=== PATIENT | male | born 1950 | race Caucasian/White ===

== ENCOUNTER → 2016-08-09 | Outpatient (CLI) | payer OTHER, MEDICARE ==
[~2016-08-09] MED LIST: MULT-506 PO; PRLSR20 PO
[2016-08-09 12:50] LABS: ALT/SGPT 21 U/L (12-78); AST/SGOT 15 U/L (15-37); BLOOD UREA NITROGEN 14 mg/dl (7-18); BUN/CREATININE RATIO 12.6 (10-20); CARBON DIOXIDE 29 mmol/L (21-32); CHLORIDE 104 mmol/L (98-107); CHOLESTEROL 168 mg/dl (0-200); GLUCOSE 104 mg/dl (70-99); SODIUM 141 mmol/L (136-145); TRIGLYCERIDES 84 mg/dl (0-150); VERY LOW DENSITY LIPOPROT CALC 17 mg/dl
[2016-08-09 12:53] LABS: ALB/GLOB RATIO 1.1 (0.9-2); ALKALINE PHOSPHATASE 79 U/L (45-117); CHOLESTEROL/HDL RATIO 3.1; HDL CHOLESTEROL 54 mg/dl; LDL CHOLESTEROL CALCULATED 97 mg/dl
== END | disposition home or self-care (01) ==
LOC: C.LABPVFM 08:14
PROVIDERS: ATTEND Nurse Practitioner
DX: Z51.81 Encounter for therapeutic drug level monitoring (principal); Z12.5 Encounter for screening for malignant neoplasm of prostate; E78.5 Hyperlipidemia, unspecified

== ENCOUNTER → 2016-09-25 | Day surgery (SDC) | payer OTHER, MEDICARE ==
[2016-09-10 13:05] VITALS: Ht 185.4 cm; Wt 93.6 kg
[~2016-09-25] VITALS: Ht 185.4 cm; Wt 93.6 kg
[~2016-09-25] MED LIST changes: +LIDOCAINE HCL 2% 2 ML VIAL (20MG/ML) ONE; +MIDAZOLAM HCL 1 MG/ML 2ML VIAL ONE; +ONDANSETRON INJ 2 MG/ML 2 ML VIAL ONE; +PROPOFOL IV EMULSION 10 MG/ML 20 ML VIAL IV ONE; +SODIUM CHLORIDE 0.9% 500ML 500 ML IV ONE
--- NOTE | 2016-09-25 10:13 | Endo History and Physical ---
History & Physical Date of Service: Sep 25, 2016. Chief Complaint: Hx tubular adenoma Referring Physician: Alexia Hall History of Present Illness 66 yo CM who presents for Colonoscopy secondary to history of colon polyps. Past Medical History Arthritis, Gastrointestinal Disorder, Reflux, Other Past Surgical History Hx Cardiac Surgery: No Hx Internal Defibrillator: No Hx Pacemaker: No Hx Abdominal Surgery: Yes (HERNIA REPAIR) Hx of Implantable Prosthesis: No Hx Post-Op Nausea and Vomiting: No Hx Cancer Surgery: No Hx Thoracic Surgery: No Hx Orthopedic: Yes (RT FOOT I&D FOR INFECTION) Hx Urinary Tract Surgery: No Family History None Social History Smoking Status: Former Smoker Hx Substance Use: No Hx Alcohol Use: Yes (1 DRINK/DAY) Allergies Coded Allergies: No Known Allergies (Unverified , 09/10/16) Current Medications Reported Home Medications Medications Dose Route/Sig Max Daily Dose Days Date Category Multivitamin (Multivitamins) Tab 1 Tab PO QAM 10/27/14 Reported Prilosec (Omeprazole) 20 Mg Capcr 20 Mg PO QAM 10/26/14 Reported Vital Signs Weight (Kilograms): 93.64 Height (Feet): 6 Height (Inches): 1 Date Time Temp Pulse Resp B/P Pulse Ox O2 Delivery O2 Flow Rate FiO2 09/25/16 09:28 36.4 60 20 146/53 96 Room Air Physical Exam General Appearance: WD/WN, no apparent distress Respiratory/Chest: Auscultation: breath sounds normal Cardiovascular: Heart Auscultation: RRR Abdomen: Bowel Sounds: normal Inspection & Palpation: soft, non-distended, no tenderness, guarding & rebound Assessment and Plan Assessment: 66 yo CM who presents for Colonoscopy secondary to history of colon polyps. Plan: Proceed with colonoscopy.
--- NOTE | 2016-09-25 11:13 | GI REPORT ---
Procedure Date: 09/25/2016 10:29 AM Procedure: Colonoscopy Indications: High risk colon cancer surveillance: Personal history of colonic polyps Medicines: Monitored Anesthesia Care Complications: No immediate complications. Estimated Blood Loss: Estimated blood loss: none. Procedure: Pre-Anesthesia Assessment: - Prior to the procedure, a History and Physical was performed, and patient medications and allergies were reviewed. The patient's tolerance of previous anesthesia was also reviewed. The risks and benefits of the procedure and the sedation options and risks were discussed with the patient. All questions were answered, and informed consent was obtained. Prior Anticoagulants: The patient has taken no previous anticoagulant or antiplatelet agents. ASA Grade Assessment: III - A patient with severe systemic disease. After reviewing the risks and benefits, the patient was deemed in satisfactory condition to undergo the procedure. After I obtained informed consent, the scope was passed under direct vision. Throughout the procedure, the patient's blood pressure, pulse, and oxygen saturations were monitored continuously. The Scope was introduced through the anus and advanced to the terminal ileum. The colonoscopy was performed without difficulty. The patient tolerated the procedure well. The quality of the bowel preparation was good. The terminal ileum, ileocecal valve, appendiceal orifice, and rectum were photographed. Findings: Two sessile polyps were found in the rectum. The polyps were 4 to 5 mm in size. These polyps were removed with a hot snare. Resection and retrieval were complete. Multiple small-mouthed diverticula were found in the sigmoid colon. Non-bleeding internal hemorrhoids were found during retroflexion. The hemorrhoids were small. Impression: - Two 4 to 5 mm polyps in the rectum, removed with a hot snare. Resected and retrieved. - Diverticulosis in the sigmoid colon. - Non-bleeding internal hemorrhoids. Recommendation: - Resume previous diet. - Continue present medications. - Repeat colonoscopy for surveillance based on pathology results. - Return to primary care physician as previously scheduled. Barney Lees DO 09/25/2016 11:13:07 AM This report has been signed electronically. Note Initiated On: 09/25/2016 10:29 AM I attest to the content of the Intraoperative Record and orders documented therein, exceptions below
--- NOTE | 2016-09-25 11:14 | Discharge Instructions ---
Endoscopy Patient Instructions Date / Procedure(s) Performed Sep 25, 2016. Colonoscopy Allergy Information Coded Allergies: No Known Allergies (Unverified , 09/10/16) Discharge Date / Findings Sep 25, 2016. Rectal polyps Diverticulosis Internal hemorrhoids Medication Instructions OK to resume all medications today as prescribed. Reported Home Medications Medications Dose Route/Sig Max Daily Dose Days Date Category Multivitamin (Multivitamins) Tab 1 Tab PO QAM 10/27/14 Reported Prilosec (Omeprazole) 20 Mg Capcr 20 Mg PO QAM 10/26/14 Reported Provider Instructions Activity Restrictions - No exercising or heavy lifting for 24 hours. - Do not drink alcohol the day of the procedure. - Do not drive a car or operate machinery until the day after the procedure. - Do not make any important decisions or sign important papers in 24 hours after the procedure. Following Day: - Return to full activity which may include returning to work/school. Diet Start your diet with liquids and light foods (jello, soup, juice, toast). Then eat your usual diet if not nauseated. Treatment For Common After Affects For mild abdominal pain, bloating, or excessive gas: - Rest - Eat lightly - Lie on right side Follow-Up Information Follow-up with Alexia Hall as scheduled Anesthesia Information What You Should Know You have had a procedure that required some medicine to reduce anxiety and discomfort. This treatment is called moderate sedation. After receiving the treatment, you may be sleepy, but you will be able to breathe on your own. The effects of the treatment may last for several hours. Follow these instructions along with Activity/Diet recommendations noted above: * Do NOT do anything where dizziness or clumsiness would be dangerous. * Rest quietly at home today, then you can be up and about tomorrow. * Have a responsible person stay with you the rest of today. * You may have had an I.V. today. If so, you may take the dressing off later today. Recommendations Call your doctor if: * Trouble breathing * Continuous vomiting for more than 24 hours * Temperature above 101 degrees * Severe abdominal pain or bloating * Pain not relieved by pain medicine ordered * There is increased drainage or redness from any incision * A large amount of rectal bleeding greater than 2-3 tablespoons. (If you had a polyp/s removed or have hemorrhoids, a small amount of blood - from the rectum is to be expected.) * You have any unanswered questions or concerns. IN THE EVENT OF A SERIOUS EMERGENCY, GO TO THE NEAREST EMERGENCY ROOM Your discharge instructions were prepared by provider Barney Lees. Patient Instructions Signature Page Josh Lorenzo Patient (or Guardian) Signature/Date: I have read and understand the instructions given to me by my caregivers. Caregiver/RN/Doctor Signature/Date: The above-named patient and/or guardian has received patient instructions on this date. + Original Patient Signature Page (only) stays with chart. Please make copy for patient.
[2016-09-25 11:35] VITALS: BP 129/60; PULSE 60; O2SAT 99
--- NOTE | 2016-09-25 14:31 | Anesthesiology Progress Note ---
Anesthesia Post Op Note Date & Time Sep 25, 2016 at 14:31 Vital Signs Pain Intensity: 0 Vital Signs Past 12 Hours Date Time Temp Pulse Resp B/P Pulse Ox O2 Delivery O2 Flow Rate FiO2 09/25/16 11:35 60 18 129/60 99 Room Air 09/25/16 11:20 60 18 125/60 96 Room Air 09/25/16 11:05 65 18 115/46 96 Room Air 09/25/16 09:28 36.4 60 20 146/53 96 Room Air Notes Mental Status: alert / awake / arousable, participated in evaluation Pt Amnestic to Procedure: Yes Nausea / Vomiting: adequately controlled Pain: adequately controlled Airway Patency, RR, SpO2: stable & adequate BP & HR: stable & adequate Hydration State: stable & adequate Anesthetic Complications: no major complications apparent
== END | disposition home or self-care (01) ==
LOC: C.GI 09:10
PROVIDERS: ATTEND Internal Medicine
DX: Z12.11 Encounter for screening for malignant neoplasm of colon (principal); K62.1 Rectal polyp; Z86.010 Personal history of colon polyps; K57.32 Diverticulitis of large intestine without perforation or abscess without bleeding; K64.8 Other hemorrhoids; K21.9 Gastro-esophageal reflux disease without esophagitis; M19.90 Unspecified osteoarthritis, unspecified site; Z87.891 Personal history of nicotine dependence; E78.5 Hyperlipidemia, unspecified; K22.70 Barrett's esophagus without dysplasia

== ENCOUNTER → 2017-08-15 | Outpatient (CLI) | payer OTHER, MEDICARE ==
[~2017-08-15] MED LIST changes: -LIDOCAINE HCL 2% 2 ML VIAL (20MG/ML) ONE; -MIDAZOLAM HCL 1 MG/ML 2ML VIAL ONE; -ONDANSETRON INJ 2 MG/ML 2 ML VIAL ONE; -PROPOFOL IV EMULSION 10 MG/ML 20 ML VIAL IV ONE; -SODIUM CHLORIDE 0.9% 500ML 500 ML IV ONE
[2017-08-15 13:18] LABS: ALBUMIN 3.9 gm/dl (3.4-5.0); ALT/SGPT 33 U/L (12-78); AST/SGOT 21 U/L (15-37); BLOOD UREA NITROGEN 16 mg/dl (7-18); CALCIUM 9.1 mg/dl (8.5-10.1); CARBON DIOXIDE 31 mmol/L (21-32); CREATININE 1.09 mg/dl (0.60-1.40); GLUCOSE 113 mg/dl (70-99); POTASSIUM 4.1 mmol/L (3.5-5.1); SODIUM 137 mmol/L (136-145)
[2017-08-15 13:22] LABS: ALKALINE PHOSPHATASE 76 U/L (45-117); TOTAL PROTEIN 7.6 gm/dl (6.4-8.2)
== END | disposition home or self-care (01) ==
LOC: C.LABPVFM 08:39
PROVIDERS: ATTEND Nurse Practitioner
DX: K22.70 Barrett's esophagus without dysplasia (principal); R73.01 Impaired fasting glucose; Z12.5 Encounter for screening for malignant neoplasm of prostate

== ENCOUNTER → 2017-10-28 | Day surgery (SDC) | payer OTHER, MEDICARE ==
[2017-10-22 08:05] VITALS: Ht 185.4 cm; Wt 94.1 kg
[~2017-10-28] VITALS: Ht 185.4 cm; Wt 94.1 kg
[~2017-10-28] MED LIST changes: +RANI150T85 PO; +SODIUM CHLORIDE 0.9% 500ML 500 ML IV ONE
--- NOTE | 2017-10-28 11:37 | Endo History and Physical ---
History & Physical Date of Service: Oct 28, 2017. Chief Complaint: Choe's esophagus Referring Physician: Alexia Hall History of Present Illness 67 yo CM who presents for EGD secondary to Choe's Esophagus. Past Medical History Arthritis, Gastrointestinal Disorder, Reflux, Other Past Surgical History Hx Cardiac Surgery: No Hx Internal Defibrillator: No Hx Pacemaker: No Hx Abdominal Surgery: Yes (HERNIA REPAIR) Hx of Implantable Prosthesis: No Hx Post-Op Nausea and Vomiting: No Hx Cancer Surgery: No Hx Thoracic Surgery: No Hx Orthopedic: Yes (RT FOOT I&D FOR INFECTION) Hx Urinary Tract Surgery: No Family History None Social History Smoking Status: Former Smoker Hx Substance Use: No Hx Alcohol Use: Yes (1 DRINK/DAY) Allergies Coded Allergies: No Known Allergies (Unverified , 10/22/17) Current Medications Reported Home Medications Medications Dose Route/Sig Max Daily Dose Days Date Category Zantac (Ranitidine HCl) 150 Mg Tab 150 Mg PO DAILY PRN 10/22/17 Reported Multivitamin (Multivitamins) Tab 1 Tab PO QAM 10/27/14 Reported Prilosec (Omeprazole) 20 Mg Capcr 20 Mg PO QAM 10/26/14 Reported Vital Signs Weight (Kilograms): 94.09 Height (Feet): 6 Height (Inches): 1 Physical Exam General Appearance: WD/WN, no apparent distress Respiratory/Chest: Auscultation: breath sounds normal Cardiovascular: Heart Auscultation: RRR Abdomen: Bowel Sounds: normal Inspection & Palpation: soft, non-distended, no tenderness, guarding & rebound Assessment and Plan Assessment: 67 yo CM who presents for EGD secondary to Choe's Esophagus. Plan: Proceed with colonoscopy.
[2017-10-28 11:39] VITALS: TEMP 36.5
--- NOTE | 2017-10-28 13:11 | Discharge Instructions ---
Endoscopy Patient Instructions Date / Procedure(s) Performed Oct 28, 2017. EGD Allergy Information Coded Allergies: No Known Allergies (Unverified , 10/22/17) Discharge Date / Findings Oct 28, 2017. Choe's Esophagus s/p biopsies Hiatal hernia Medication Instructions OK to resume all medications today as prescribed Reported Home Medications Medications Dose Route/Sig Max Daily Dose Days Date Category Zantac (Ranitidine HCl) 150 Mg Tab 150 Mg PO DAILY PRN 10/22/17 Reported Multivitamin (Multivitamins) Tab 1 Tab PO QAM 10/27/14 Reported Prilosec (Omeprazole) 20 Mg Capcr 20 Mg PO QAM 10/26/14 Reported Provider Instructions Activity Restrictions - No exercising or heavy lifting for 24 hours. - Do not drink alcohol the day of the procedure. - Do not drive a car or operate machinery until the day after the procedure. - Do not make any important decisions or sign important papers in 24 hours after the procedure. Following Day: - Return to full activity which may include returning to work/school. Diet Start your diet with liquids and light foods (jello, soup, juice, toast). Then eat your usual diet if not nauseated. Treatment For Common After Affects For mild abdominal pain, bloating, or excessive gas: - Rest - Eat lightly - Lie on right side Follow-Up Information Follow-up with Alexia Hall as scheduled Anesthesia Information What You Should Know You have had a procedure that required some medicine to reduce anxiety and discomfort. This treatment is called moderate sedation. After receiving the treatment, you may be sleepy, but you will be able to breathe on your own. The effects of the treatment may last for several hours. Follow these instructions along with Activity/Diet recommendations noted above: * Do NOT do anything where dizziness or clumsiness would be dangerous. * Rest quietly at home today, then you can be up and about tomorrow. * Have a responsible person stay with you the rest of today. * You may have had an I.V. today. If so, you may take the dressing off later today. Recommendations Call your doctor if: * Trouble breathing * Continuous vomiting for more than 24 hours * Temperature above 101 degrees * Severe abdominal pain or bloating * Pain not relieved by pain medicine ordered * There is increased drainage or redness from any incision * A large amount of rectal bleeding greater than 2-3 tablespoons. (If you had a polyp/s removed or have hemorrhoids, a small amount of blood - from the rectum is to be expected.) * You have any unanswered questions or concerns. IN THE EVENT OF A SERIOUS EMERGENCY, GO TO THE NEAREST EMERGENCY ROOM Your discharge instructions were prepared by provider Barney Lees. Patient Instructions Signature Page Josh Lorenzo Patient (or Guardian) Signature/Date: I have read and understand the instructions given to me by my caregivers. Caregiver/RN/Doctor Signature/Date: The above-named patient and/or guardian has received patient instructions on this date. + Original Patient Signature Page (only) stays with chart. Please make copy for patient.
--- NOTE | 2017-10-28 13:25 | Anesthesiology Progress Note ---
Anesthesia Post Op Note Date & Time Oct 28, 2017 at 13:25 Vital Signs Pain Intensity: 0 Vital Signs Past 12 Hours Date Time Temp Pulse Resp B/P (MAP) Pulse Ox O2 Delivery O2 Flow Rate FiO2 10/28/17 13:20 54 20 114/44 (67) 96 Room Air 10/28/17 13:15 55 20 93/46 (62) 96 Room Air 10/28/17 13:08 59 20 98/42 (60) 94 Room Air 10/28/17 11:39 36.5 57 20 132/68 (89) 95 Room Air Notes Mental Status: alert / awake / arousable, participated in evaluation Pt Amnestic to Procedure: Yes Nausea / Vomiting: adequately controlled Pain: adequately controlled Airway Patency, RR, SpO2: stable & adequate BP & HR: stable & adequate Hydration State: stable & adequate Anesthetic Complications: no major complications apparent
[2017-10-28 13:27] VITALS: BP 119/60; PULSE 55; O2SAT 96
--- NOTE | 2017-10-28 14:31 | GI REPORT ---
Procedure Date: 10/28/2017 12:49 PM Procedure: Upper GI endoscopy Indications: Follow-up of Choe's esophagus Medicines: Monitored Anesthesia Care Complications: No immediate complications. Estimated Blood Loss: Estimated blood loss: none. Procedure: Pre-Anesthesia Assessment: - Prior to the procedure, a History and Physical was performed, and patient medications and allergies were reviewed. The patient's tolerance of previous anesthesia was also reviewed. The risks and benefits of the procedure and the sedation options and risks were discussed with the patient. All questions were answered, and informed consent was obtained. Prior Anticoagulants: The patient has taken no previous anticoagulant or antiplatelet agents. ASA Grade Assessment: III - A patient with severe systemic disease. After reviewing the risks and benefits, the patient was deemed in satisfactory condition to undergo the procedure. After obtaining informed consent, the endoscope was passed under direct vision. Throughout the procedure, the patient's blood pressure, pulse, and oxygen saturations were monitored continuously. The scope was introduced through the mouth, and advanced to the second part of duodenum. The upper GI endoscopy was accomplished without difficulty. The patient tolerated the procedure well. Findings: There were esophageal mucosal changes consistent with short-segment Choe's esophagus present at the gastroesophageal junction. The maximum longitudinal extent of these mucosal changes was 2 cm in length. Biopsies were taken with a cold forceps for histology. A small hiatal hernia was present. The examined duodenum was normal. Impression: - Esophageal mucosal changes consistent with short-segment Choe's esophagus. Biopsied. - Small hiatal hernia. - Normal examined duodenum. Recommendation: - Resume previous diet. - Continue present medications. - Await pathology results. - Return to primary care physician as previously scheduled. Barney Lees, DO 10/28/2017 2:31:17 PM This report has been signed electronically. Note Initiated On: 10/28/2017 12:49 PM I attest to the content of the Intraoperative Record and orders documented therein, exceptions below
== END | disposition home or self-care (01) ==
LOC: C.GI 10:19
PROVIDERS: ATTEND Internal Medicine
DX: K22.70 Barrett's esophagus without dysplasia (principal); K44.9 Diaphragmatic hernia without obstruction or gangrene; Z87.891 Personal history of nicotine dependence

== ENCOUNTER 2024-12-26 11:35 | Inpatient (IN) ==
--- NOTE | 2024-12-26 12:12 | Emergency Department Note ---
Impression & Plan Polyarthralgia, CRP elevated ED Provider Note HISTORY OF PRESENT ILLNESS: Patient is a 74-year-old male presenting with polyarthralgia. Patient reports that he has been [place] the mountains hunting with his 2 grandsons for the last month and a half. He reports he found a tick once but it was not embedded. He denies any rashes. Reports that about a month ago he went to his primary doctor because he was having diffuse joint pain and thought he had Lyme's disease. He had a negative test result at that visit at the end of November 2024. He had continued worsening symptoms and cyclic fevers and chills, and presented to his doctor 6 days ago and was started on doxycycline 100 mg twice daily for 14 days for empiric treatment. Patient reports significant continued worsening of his polyarthralgias. He has difficulties getting up and around secondary to his joint pain. He states that since starting the doxycycline, his bilateral hip pain has improved, but he has significant pain in his bilateral shoulders, bilateral knees and has notable swelling and pain in the left ankle. He has not measured his fever but states that he gets episodes where he gets diaphoretic and then will get chilled. He denies any injury. He only takes omeprazole on a daily basis. Denies any abdominal pain, nausea or vomiting. Denies any chest pain or shortness of breath. Denies any recent headache or changes in vision. He reports that 3 weeks ago he was having a headache and a stiff neck that lasted for about 5 days but has since improved. Denies any notable rashes in the last month. Other than starting the doxycycline, patient denies any recent changes to medications. ROS: as above PHYSICAL EXAM: Constitutional: Patient appears in no acute distress. HENT: Head: Normocephalic and atraumatic. Eyes: EOMI, PERRL Mouth/Throat: Mucous membranes moist. Neck: Trachea midline. Neck supple. Cardiovascular: RRR, No murmurs, rubs or gallops. Intact distal pulses. Pulmonary/Chest: No respiratory distress. Breath sounds clear and equal bilaterally. No wheezes or rales. Abdominal: Abdomen soft, no tenderness, rebound or guarding. Musculoskeletal: Limited range of motion of the bilateral shoulders secondary to pain. Notable swelling to the left ankle without any overlying skin discoloration. Skin: Warm and dry. No rash, erythema, pallor or cyanosis Psychiatric: Appropriate mood and affect for situation. Neurological: Alert and keenly responsive. CN II-XII grossly intact, moving all extremities equally and fully. MDM: - Vitals signs showed hypertension - History obtained via patient. History as above. - Chronic conditions affecting care: GERD - Differential diagnoses include, but are not limited to: Tickborne illness; septic arthritis; bacteremia; osteoarthritis; lupus - Order placed for continuous cardiac monitoring. At this time, monitor showed rate of 69 bpm with normal sinus rhythm, per my interpretation. - External medical records reviewed. Primary care visit note dated 12/21/2024 was reviewed. Patient was started on doxycycline at that time for presumed Lyme disease. - Laboratory workup interpreted by myself showed normal WBC; normal lactic acid; slight hyponatremia (Na 134); normal procalcitonin; elevated CRP (13.89) - Negative Lyme/Anaplasmosis/Babesia - Blood cultures obtained - Patient given 2g IV rocephin for empiric coverage. - Patient's diffuse polyarthralgias are concerning for disseminated Lyme. However, he has had a negative Lyme test again today. He has a significantly elevated CRP and with his diffuse polyarthralgias, do feel that IV ceftriaxone is appropriate for empiric coverage. Patient has been on 5 days of doxycycline with little improvement in his symptoms. - Discussion was had with counter caser about patient's case and need for admission - Hospitalist consulted for admission - Patient admitted to [facility] Hospitalist service for further evaluation and management. ASSESSMENT AND PLAN: Diagnosis: Polyarthralgias; elevated CRP Plan: Admit Past Med/Surg History Problem List (Updated 12/26/24 @ 15:15 by Connie Chambers MD) CRP elevated (Acute) Polyarthralgia (Acute) Suspected Lyme disease Fever Arthralgia Carpal tunnel syndrome of left wrist History of umbilical hernia repair (07/09/24) p Open Umbilical Hernia Repair - Kranthi Azevedo, Actinic keratosis due to exposure to sunlight Encounter for pre-operative examination Barretts esophagus (Chronic) Medical History Choe esophagus Umbilical hernia GERD (gastroesophageal reflux disease) Hx of colonic polyp Surgical History History of colonoscopy History of esophagogastroduodenoscopy (EGD) History of carpal tunnel surgery H/O inguinal hernia repair Family History Grandfather Coronary heart disease Myocardial infarction Father Prostate cancer Diabetes Mother Parkinsons disease Other No family history of adverse response to anesthesia Denies family history of Ovarian cancer Breast cancer Social History (Updated 11/26/24 @ 08:28 by Jacqueline Barnett LPN) Smoking Status: Never smoker Tobacco Type: Cigarettes and Smokeless Tobacco (Dip or Chew) Age Started Using Tobacco: 18; Age Quit Using Tobacco: 33; packs per day: 0.4; Second Hand Exposure: No; Do You Dip or Chew Tobacco: No (hx years ago>quit ); Hx Alcohol Use: Yes Alcohol type: beer Alcohol Intake Frequency: 4 or More x per/Week Hx Substance Use: No Preferred Language: Maltese Communication Ability: Effective Visual Impairment: Limited Hearing Ability: Hard of Hearing Loader Unloader Required: No Beliefs That Will Affect Care: None marital status: Current Living Situation: Spouse current occupational status: retired How many Children do You have: 2 Feels Safe at Home: Yes Childhood Exposure to Second-Hand Smoke: Yes (As a child- grandparents smoked. ) Diet: regular caffeine: Yes during the past year weight has: remained stable Dental Care, Regularly: Yes Physical Activity Frequency: 3-4 Times per Week Seatbelt Use: always Sunscreen Use: Yes Do you think of yourself as: straight/heterosexual Sexual Activity: has been sexually active, but not for at least 12 months Gender Identity: Male Assistive Devices: Denture - Upper and Glasses Allergies Allergies Allergy/AdvReac Type Severity Reaction Status Date / Time No Known Allergies Allergy Verified 12/21/24 10:53 Home Meds Home Medications Medication Instructions Recorded Confirmed multivitamin 1 tab PO QAM 03/10/19 12/26/24 famotidine 20 mg tablet (Pepcid AC) 20 mg PO DAILY PRN Heartburn 07/14/20 12/26/24 Previous Rx's Medication Instructions Recorded omeprazole 20 mg capsule,delayed 20 mg PO QAM #90 caps 11/03/24 release doxycycline hyclate 100 mg tablet 100 mg PO BID 2 weeks #28 tabs 12/21/24 Results & Data (ED) Vital Signs Vital Signs - 24 hr 12/26/24 11:38 12/26/24 12:33 12/26/24 15:09 Temperature 36.6 C Temperature Source Temporal Artery Scan Pulse Rate 74 69 Pulse Rate [Finger] 64 Pulse Rhythm Regular Respiratory Rate 16 18 16 Respiratory Effort / Characteristics Non-Labored Spontaneous Respiratory Depth Normal Blood Pressure 145/71 H Blood Pressure [Right Arm] 148/51 H Blood Pressure Mean 95 Blood Pressure Mean [Right Arm] 83 Pulse Oximetry 94 95 96 Oxygen Delivery Method Room Air Room Air Room Air Sepsis Recent Fever Within 48 Hours No Sepsis New/Unexplained Change in Mental Status No Sepsis Action Taken by Nursing No Action Required Laboratory Data 12/26/24 12:25 12/26/24 13:43 Lab Results 12/26/24 12/26/24 12/26/24 Range/Units 12:25 13:43 14:56 WBC 8.99 (4.8-10.8) K/ul RBC 4.66 L (4.70-6.10) M/uL Hgb 13.9 L (14.0-18.0) g/dl Hct 41.8 L (42.0-52.0) % MCV 89.7 (80.0-100.0) fL MCH 29.8 (25.0-34.0) pg MCHC 33.3 (32.0-36.0) g/dL RDW Std Deviation 39.5 (36.4-46.3) fL RDW Coeff of Kim 12.1 (11.5-14.5) % Plt Count 396 (130-400) K/uL MPV 9.7 (9.4-12.4) fL Immature Gran % (Auto) 0.2 % Neut % (Auto) 76.4 % Lymph % (Auto) 13.2 % [place] % (Auto) 9.3 % Eos % (Auto) 0.7 % Baso % (Auto) 0.2 % Neut # (Auto) 6.86 H (1.40-6.50) K/uL Lymph # (Auto) 1.19 L (1.20-3.40) K/uL [place] # (Auto) 0.84 H (0.11-0.59) K/uL Eos # (Auto) 0.06 (0.00-0.50) K/uL Baso # (Auto) 0.02 (0.00-0.20) K/uL Immature Gran # (Auto) 0.02 (0.01-0.20) K/uL Sodium TNP 134 L Potassium TNP 4.2 Chloride 100 (98-107) mmol/L Carbon Dioxide 26 (21-32) mmol/L Anion Gap TNP BUN 18 (6-23) mg/dl Creatinine 0.88 (0.6-1.4) mg/dl Est Cr Clr Drug Dosing 78.4 ml/min eGFR 89.12 BUN/Creatinine Ratio 20.5 H (10-20) Glucose 148 H (70-99(Fasting)) mg/dl Lactate 0.9 (0.4-2.0) mmol/L Calcium 9.2 (8.6-10.3) mg/dl Total Bilirubin 0.5 (0.2-1.0) mg/dl AST TNP 13 ALT 19 (7-52) U/L Alkaline Phosphatase TNP 67 C-Reactive Protein 13.89 H (0-0.5) mg/dl Total Protein 7.3 (6.0-8.3) gm/dl Albumin TNP 3.1 L Globulin TNP Albumin/Globulin Ratio TNP Procalcitonin Cancelled 0.07 Anaplasma Smear See Comment Babesia Smear See Comment Lyme Disease Screen Cancelled Negative Administered Medications Discontinued Medications Ceftriaxone Sodium (Rocephin) 2,000 mg in 50 mls @ 100 mls/hr IV NOW STA Stop: 12/26/24 15:07 Last Infusion: 12/26/24 16:13 Dose: Infused Documented By: Admin: 12/26/24 15:26 Dose: 100 mls/hr Documented By: LACHELLE Discharge Plan Visit Data Chief Complaint: Illness Stated Complaint: WEAK,NOT EATING MUCH,STIFF SORE ED Provider: Connie Chambers Discharge Problem: Polyarthralgia, CRP elevated Condition: Fair Forms Stand Alone Forms: My [facility] Prescriptions Prescriptions: No Action omeprazole 20 mg capsule,delayed release(DR/EC) 20 mg PO QAM Qty: 90 3RF famotidine [Pepcid AC] 20 mg tablet 20 mg PO DAILY PRN (Reason: Heartburn) Rx Instructions: 12/26-otc unable to verify multivitamin tablet 1 tab PO QAM Rx Instructions: 12/26-otc unable to verify doxycycline hyclate 100 mg tablet 100 mg PO BID 14 Days Qty: 28 0RF Referrals Referrals: Alexia Hall CRNP [Primary Care Provider] -
[2024-12-26 12:51] LABS: Basophils # (auto) 0.02 K/uL (0.00-0.20); Basophils % (auto) 0.2 %; Eosinophils # (auto) 0.06 K/uL (0.00-0.50); Eosinophils % (auto) 0.7 %; Hematocrit (blood only) 41.8 % (42.0-52.0); Hemoglobin 13.9 g/dl (14.0-18.0); Immature Granulocytes # (auto) 0.02 K/uL (0.01-0.20); Immature Granulocytes % (auto) 0.2 %; Lymphocytes # (auto) 1.19 K/uL (1.20-3.40); Lymphocytes % (auto) 13.2 %; Mean Corpuscular Hemoglobin 29.8 pg (25.0-34.0); Mean Corpuscular Hgb Conc 33.3 g/dL (32.0-36.0); Mean Corpuscular Volume 89.7 fL (80.0-100.0); Mean Platelet Volume 9.7 fL (9.4-12.4); Monocytes # (auto) 0.84 K/uL (0.11-0.59); Monocytes % (auto) 9.3 %; Neutrophils # (auto) 6.86 K/uL (1.40-6.50); Neutrophils % (auto) 76.4 %; Platelet Count 396 K/uL (130-400); RDW Coefficient of Variation 12.1 % (11.5-14.5); RDW Standard Deviation 39.5 fL (36.4-46.3); Red Blood Count 4.66 M/uL (4.70-6.10); White Blood Count 8.99 K/ul (4.8-10.8)
[2024-12-26 13:14] LABS: Alanine Aminotransferase 19 U/L (7-52); BUN Creatinine Ratio 20.5 (10-20); Bilirubin,Total 0.5 mg/dl (0.2-1.0); Blood Urea Nitrogen 18 mg/dl (6-23); C Reactive Protein 13.89 mg/dl (0-0.5); Calcium 9.2 mg/dl (8.6-10.3); Carbon Dioxide 26 mmol/L (21-32); Chloride 100 mmol/L (98-107); Creatinine Clr Calc Pharmacy 78.4 ml/min; Glucose 148 mg/dl (70-99(Fasting)); Total Protein 7.3 gm/dl (6.0-8.3)
[2024-12-26 14:12] LABS: Albumin Level 3.1 gm/dl (3.4-5.0); Potassium 4.2 mmol/L (3.5-5.1)
[2024-12-26 14:19] LABS: Procalcitonin 0.07 ng/ml (0-0.5)
[2024-12-26 14:44] LABS: Lyme Screen Rflx Confirmation Negative (Negative)
[2024-12-26] MEDS: cefTRIAXone SODIUM 2,000 MG/50 ML BAG IV STA (15:26)
[2024-12-26] MEDS ORDERED: ACETAMINOPHEN 325 MG TAB PO PRN (17:34)
--- NOTE | 2024-12-26 18:00 | History & Physical Report ---
Date of Service December 26, 2024 Assessment & Plan (1) CRP elevated: Plan: Patient has significant elevated CRP level I have consulted infectious disease will add prednisone will also consult orthopedics service in the morning to see if there is any benefit of sending the synovial fluid from the joint space for possible diagnosis I will consult infectious disease first before I consult orthopedic service (2) Polyarthralgia: Plan: Patient has restarted doxycycline 100 mg twice daily since Saturday and his left shoulder significantly improved I will continue with doxycycline Also start patient on 40 mg of prednisone (3) Arthralgia: Plan: Continue with steroids and pain management since patient has gastroesophageal reflux disease and Choe's esophagus I will avoid nonsteroidal anti- inflammatory medications (4) Barretts esophagus: Plan: Continue patient on medications for gastroesophageal reflux disease Plan See above History of Present Illness Primary Care Provider: LAUREN Menezes Patient was seen in emergency room bed 10 he was brought in by his daughter Ms. Patiño who can be reached at phone #[phone] . According to her this is highly unusual of his father to miss his grandkids summer activities according to patient he was on the mountains for 3 weeks every day hunting turkeys with his grand kids after that on November 26 he went to his primary care because he was having significant joint pains a Lyme test was done and it was negative patient has been taking ibuprofen just in order to move around he has been experiencing a stiff neck and shoulder pains currently his right shoulder has very limited range of motion 10 to 15 degrees in flexion unable to do extension 5 to 10 degrees of internal rotation unable to move his shoulder above the head. Mentions that he had similar disability in his left shoulder that improved he has started taking doxycycline since Saturday. Also noticed on the exam was painless but swollen left ankle patient denies any high- grade fever but he mentions that he has changes in his temperature off and on Allergies Allergy/AdvReac Type Severity Reaction Status Date / Time No Known Allergies Allergy Verified 12/21/24 10:53 Home Medications Medication Instructions Recorded Confirmed Type multivitamin 1 tab PO QAM 03/10/19 12/26/24 History famotidine 20 mg tablet (Pepcid AC) 20 mg PO DAILY PRN Heartburn 07/14/20 History omeprazole 20 mg capsule,delayed 20 mg PO QAM #90 caps 11/03/24 12/26/24 Rx release doxycycline hyclate 100 mg tablet 100 mg PO BID 2 weeks #28 tabs 12/21/24 12/26/24 Rx Past Med/Surg History Problem List (Updated 12/26/24 @ 15:15 by Connie Chambers MD) CRP elevated (Acute) Polyarthralgia (Acute) Suspected Lyme disease Fever Arthralgia Carpal tunnel syndrome of left wrist History of umbilical hernia repair (07/09/24) p Open Umbilical Hernia Repair - Kranthi Azevedo, Actinic keratosis due to exposure to sunlight Encounter for pre-operative examination Barretts esophagus (Chronic) Medical History Choe esophagus Umbilical hernia GERD (gastroesophageal reflux disease) Hx of colonic polyp Surgical History History of colonoscopy History of esophagogastroduodenoscopy (EGD) History of carpal tunnel surgery H/O inguinal hernia repair Family History Grandfather Coronary heart disease Myocardial infarction Father Prostate cancer Diabetes Mother Parkinsons disease Other No family history of adverse response to anesthesia Denies family history of Ovarian cancer Breast cancer Social History (Updated 11/26/24 @ 08:28 by Jacqueline Barnett LPN) Smoking Status: Never smoker Tobacco Type: Cigarettes and Smokeless Tobacco (Dip or Chew) Age Started Using Tobacco: 18; Age Quit Using Tobacco: 33; packs per day: 0.4; Second Hand Exposure: No; Do You Dip or Chew Tobacco: No (hx years ago>quit 1999'); Hx Alcohol Use: Yes Alcohol type: beer Alcohol Intake Frequency: 4 or More x per/Week Hx Substance Use: No Preferred Language: Malaysian Communication Ability: Effective Visual Impairment: Limited Hearing Ability: Hard of Hearing Crossword Puzzle Maker Required: No Beliefs That Will Affect Care: None marital status: Current Living Situation: Spouse current occupational status: retired How many Children do You have: 2 Feels Safe at Home: Yes Childhood Exposure to Second-Hand Smoke: Yes (As a child- grandparents smoked. ) Diet: regular caffeine: Yes during the past year weight has: remained stable Dental Care, Regularly: Yes Physical Activity Frequency: 3-4 Times per Week Seatbelt Use: always Sunscreen Use: Yes Do you think of yourself as: straight/heterosexual Sexual Activity: has been sexually active, but not for at least 12 months Gender Identity: Male Assistive Devices: Denture - Upper and Glasses Review of Systems Review of Systems: Patient has positive gastroesophageal reflux disease Denies chest pain Denies shortness of breath Positive arthralgia Bilateral shoulder pain bilateral hip pain bilateral knee and ankle pain Physical Exam Physical Exam: HEENT atraumatic normocephalic pupil equal round reactive to light Mucous membranes are moist neck is supple Chest is clear to auscultation Cardiovascular exam S1-S2 regular rate and rhythm Abdomen is soft nontender Patient had an umbilical hernia repair surgery in July 2024 Extremities no edema, right shoulder has limited range of motion left shoulder has more range of motion than the right shoulder Patient is laying down gait was not checked however hips are not hurting at this time patient has significant knee pain and left ankle joint is swollen Skin exam negative for any migratory skin lesions Neuro cranial nerves II to XII are intact no motor or sensory deficit Results & Data Results & Data Vital Signs (Past 12 Hours) Vital Signs Temp Pulse Pulse Resp BP BP Pulse Ox 12/26/24 17:23 64 18 154/60 H 96 12/26/24 15:09 64 16 148/51 H 96 12/26/24 12:33 69 18 95 12/26/24 11:38 36.6 C 74 16 145/71 H 94 O2 Del Method 12/26/24 17:23 Room Air 12/26/24 15:09 Room Air 12/26/24 12:33 Room Air 12/26/24 11:38 Room Air Laboratory Results Pending test for Lyme disease Diagnostic Findings CRP level is 13.89 patient has also prostate specific antigen which is higher procalcitonin level is 0.07 PG Care Time/CCT Total # of Minutes Spent Total Time Spent with Patient: Total time spent is greater than 50% in coordination of care (as documented) at patient's floor/unit and/or counseling patient: Coding Level of Care Code 40538 INT INP/OBS CARE 2/55MIN Diagnoses CRP elevated R79.82 Polyarthralgia M25.50 Arthralgia, unspecified joint M25.50 Joint pain location: unspecified Choe's esophagus without dysplasia K22.70 Choe's esophagus type: without dysplasia Time Spent (min) 55 (3) Arthralgia Joint pain location: unspecified Qualified Code(s): M25.50 - Pain in unspecified joint (4) Barretts esophagus Choe's esophagus type: without dysplasia Qualified Code(s): K22.70 - Choe's esophagus without dysplasia
[2024-12-26] MEDS: IBUPROFEN 200 MG TAB PO PRN (19:16)
[2024-12-26] MEDS ORDERED: oxyCODONE HCL IR 5 MG TAB (IMMEDIATE RELEASE) PO PRN (20:26)
[2024-12-26] MEDS ORDERED: FAMOTIDINE 20 MG TAB PO PRN (20:26)
[2024-12-26] MEDS: KETOROLAC TROMETHAMINE 15 MG/ML VIAL IV ONE (20:52)
[2024-12-26] MEDS: predniSONE 20 MG TAB PO SCH (21:53)
[2024-12-26] MEDS: PANTOprazole 40 MG TAB PO SCH (21:59)
[2024-12-26] MEDS: DOXYCYCLINE HYCLATE 100 MG CAP PO SCH (23:05)
[2024-12-27 07:11] LABS: Hematocrit (blood only) 40.8 % (42.0-52.0); Hemoglobin 13.8 g/dl (14.0-18.0); Mean Corpuscular Hemoglobin 30.5 pg (25.0-34.0); Mean Corpuscular Hgb Conc 33.8 g/dL (32.0-36.0); Mean Corpuscular Volume 90.3 fL (80.0-100.0); Mean Platelet Volume 9.3 fL (9.4-12.4); Platelet Count 434 K/uL (130-400); RDW Coefficient of Variation 11.6 % (11.5-14.5); RDW Standard Deviation 38.7 fL (36.4-46.3); Red Blood Count 4.52 M/uL (4.70-6.10); White Blood Count 5.53 K/ul (4.8-10.8)
[2024-12-27 07:30] LABS: Calcium 9.3 mg/dl (8.6-10.3); Creatinine Clr Calc Pharmacy 79.3 ml/min; Potassium 4.2 mmol/L (3.5-5.1)
[2024-12-27] MEDS: MULTIVITAMIN TAB PO SCH (07:53)
--- NOTE | 2024-12-27 10:42 | Hospitalist Progress Note ---
Date of Service December 27, 2024 Assessment & Plan (1) CRP elevated: Plan: Patient has significant elevated CRP level I have consulted infectious disease will add prednisone will also consult orthopedics service in the morning to see if there is any benefit of sending the synovial fluid from the joint space for possible diagnosis Lyme antibodies were negative however rest of the tickborne disease workup is pending Follow-up on vitamin D levels (2) Polyarthralgia: Plan: Patient has restarted doxycycline 100 mg twice daily since Saturday and his left shoulder significantly improved I will continue with doxycycline Also start patient on 40 mg of prednisone (3) Arthralgia: Plan: Continue with steroids and pain management since patient has gastroesophageal reflux disease and Choe's esophagus I will avoid nonsteroidal anti- inflammatory medications (4) Barretts esophagus: Plan: Continue patient on medications for gastroesophageal reflux disease Plan See above Admission and Anticipated Discharge Date Admission Date: December 26, 2024 Subjective Overnight patient received prednisone and 1 dose of IV Toradol and ibuprofen he has been experiencing significant relief in his joint his stiffness as well as pain he reports that his left ankle is no more swollen Review of Systems Review of Systems: Patient has positive gastroesophageal reflux disease Denies chest pain Denies shortness of breath Positive arthralgia Bilateral shoulder pain bilateral hip pain bilateral knee and ankle pain Physical Exam Physical Exam: HEENT atraumatic normocephalic pupil equal round reactive to light Mucous membranes are moist neck is supple Chest is clear to auscultation Cardiovascular exam S1-S2 regular rate and rhythm Abdomen is soft nontender Patient had an umbilical hernia repair surgery in July 2024 Extremities no edema, right shoulder which had limited range of motion is now with significant improvement Patient is sitting at the edge of the bed much better and in less pain Skin exam negative for any migratory skin lesions Neuro cranial nerves II to XII are intact no motor or sensory deficit Results & Data Results & Data Vital Signs (Past 12 Hours) Vital Signs Temp Pulse Pulse Resp BP Pulse Ox O2 Del Method 12/27/24 08:13 36.6 C 64 17 144/76 H 93 Room Air 12/27/24 07:26 92 H 12/27/24 04:46 36.5 C 66 18 152/74 H 94 Room Air 12/26/24 23:47 36.6 C 70 18 142/60 H 95 Room Air PG Care Time/CCT Total # of Minutes Spent Total Time Spent with Patient: Total time spent is greater than 50% in coordination of care (as documented) at patient's floor/unit and/or counseling patient: Coding Level of Care Code 93592 SUB INP/OBS CARE 2MIN Diagnoses CRP elevated R79.82 Polyarthralgia M25.50 Arthralgia, unspecified joint M25.50 Joint pain location: unspecified Choe's esophagus without dysplasia K22.70 Choe's esophagus type: without dysplasia Time Spent (min) 35 (3) Arthralgia Joint pain location: unspecified Qualified Code(s): M25.50 - Pain in unspecif ied joint (4) Barretts esophagus Choe's esophagus type: without dysplasia Qualified Code(s): K22.70 - Choe's esophagus without dysplasia
--- NOTE | 2024-12-27 17:56 | Orthopedic Consultation ---
Date of Service December 27, 2024 Assessment & Plan (1) Polymyalgia rheumatica syndrome: 74-year-old male with 1 month history of multiple muscle aches and pains and myalgias along with arthralgias with a negative Lyme test. His sed rate and CRP are markedly elevated. My personal opinion that this is most likely reflective of polymyalgia rheumatica. There is no signs of bacterial infection. I think this unlikely represents Lyme disease. He has no significant joint effusions that would allow us to aspirate any joint fluid and send it off for analysis. He is markedly better since admission likely due to the prednisone. Plan: At this point there is no joint that is got significant effusion to aspirate. My suspicion is that this is PMR and I would recommend treating this with steroids. He can follow-up with a laser/electro optics technician. Could consider rheumatology consult. I do not suspect this is Lyme disease but we will leave that up to infectious disease to determine whether treatment is necessary for that. Any orthopedic questions can be directly [phone]. If he does develop joint effusions we be happy to aspirate any joint but that this is not present currently. (2) Polyarthralgia: (3) CRP elevated: (4) Arthralgia: (5) Carpal tunnel syndrome of left wrist: History of Present Illness Reason for Consultation: . Multiple muscles aches and joint arthralgias and concern for Lyme disease. Requesting Physician: . Attending Physician: Ashlie Garsia MD . The patient is very active healthy 74-year-old gentleman who we have been consulted on for multiple joint aches and pains and muscle aches for the past 4 weeks. He is a very active gentleman and spends quite a bit of time out in the [place]. He did have a tick bite in the back of his leg 5 or 6 weeks ago which he says he peeled off without any problems. Is not had any rashes. Over the past 4 weeks he developed pain discomfort aches and pains which is kind of waxed and waned. It started on the lateral side of both hips. It then progressed to his ankles and his knees and then his shoulders more recently. He did have a Lyme test about a month ago which was negative. They did start treating him with doxycycline about a week ago with really not much relief. It certainly has not gotten any worse. He has developed more shoulder pain. He is admitted the hospital last evening with a very limited shoulder pain. He was put on some prednisone and he is doing markedly better. He reports pain at times in his hips initially then his ankles then knees and shoulders. Allergies Allergy/AdvReac Type Severity Reaction Status Date / Time No Known Allergies Allergy Verified 12/21/24 10:53 Home Medications Medication Instructions Recorded Confirmed Type multivitamin 1 tab PO QAM 03/10/19 12/26/24 History famotidine 20 mg tablet (Pepcid AC) 20 mg PO DAILY PRN Heartburn 07/14/20 12/26/24 History omeprazole 20 mg capsule,delayed 20 mg PO QAM #90 caps 11/03/24 12/26/24 Rx release doxycycline hyclate 100 mg tablet 100 mg PO BID 2 weeks #28 tabs 12/21/24 12/26/24 Rx Past Med/Surg History Problem List (Updated 12/27/24 @ 17:57 by Gallo Serrano MD) Polymyalgia rheumatica syndrome CRP elevated (Acute) Polyarthralgia (Acute) Suspected Lyme disease Fever Arthralgia Carpal tunnel syndrome of left wrist History of umbilical hernia repair (07/09/24) p Open Umbilical Hernia Repair - Kranthi Azevedo, Actinic keratosis due to exposure to sunlight Encounter for pre-operative examination Barretts esophagus (Chronic) Medical History Choe esophagus Umbilical hernia GERD (gastroesophageal reflux disease) Hx of colonic polyp Surgical History History of colonoscopy History of esophagogastroduodenoscopy (EGD) History of carpal tunnel surgery right H/O inguinal hernia repair right inguinal hernia repair with mesh Dr. Mataomros 1989's Family History Grandfather Coronary heart disease Myocardial infarction Father Prostate cancer Diabetes Mother Parkinsons disease Other No family history of adverse response to anesthesia Denies family history of Ovarian cancer Breast cancer Social History Smoking Status: Former smoker Tobacco Type: Cigarettes Age Started Using Tobacco: 18; Age Quit Using Tobacco: 33; packs per day: 0.4; Second Hand Exposure: No; Do You Dip or Chew Tobacco: No; Hx Alcohol Use: Yes Alcohol type: beer Alcohol Intake Frequency: 4 or More x per/Week Hx Substance Use: No Preferred Language: Salvadorean Communication Ability: Effective Visual Impairment: Limited Hearing Ability: Hard of Hearing Equal Opportunity Director Required: No Beliefs That Will Affect Care: None marital status: Current Living Situation: Spouse current occupational status: retired How many Children do You have: 2 Feels Safe at Home: Yes Childhood Exposure to Second-Hand Smoke: Yes (As a child- grandparents smoked. ) Diet: regular caffeine: Yes during the past year weight has: remained stable Dental Care, Regularly: Yes Physical Activity Frequency: 3-4 Times per Week Seatbelt Use: always Sunscreen Use: Yes Do you think of yourself as: straight/heterosexual Sexual Activity: has been sexually active, but not for at least 12 months Gender Identity: Male Assistive Devices: Denture - Upper and Glasses Review of Systems All systems reviewed & are unremarkable except as noted in HPI & below. Physical Exam . Physical exam shows a pleasant healthy appearing male. He is walking around his room and looks in no acute distress at all. Examination of both shoulder reveals no visible atrophy or swelling or redness. Is got fairly full and normal shoulder motion today. Minimal pain. Motor strength is pretty symmetric. Examination of the hips reveals no obvious swelling bruising. Has got a little tenderness over the lateral side of his hip. He has painless hip motion. Examination of his knees reveals no knee effusions. He has got normal range of motion. He is neurologically intact. NuPrep examination of the ankles reveals no obvious swelling. Does have hindfoot valgus deformity with some posterior tibial tendon insufficiency. No redness or warmth. Results & Data Results & Data Laboratory Results . White blood cell count is normal at 5.53. His sed rate is markedly elevated at 93. His CRP is also elevated at 13.89. Lyme test is negative. Uric acid level normal Diagnostic Findings . PG Care Time/CCT Total # of Minutes Spent Total Time Spent with Patient: Total time spent is greater than 50% in coordination of care (as documented) at patient's floor/unit and/or counseling patient: Coding Level of Care Code 44893 IN/OBS CONSULT LVL 4,60M Diagnoses Polymyalgia rheumatica syndrome M35.3 Polyarthralgia M25.50 CRP elevated R79.82 Arthralgia, unspecified joint M25.50 Joint pain location: unspecified Carpal tunnel syndrome of left wrist G56.02 (4) Arthralgia Joint pain location: unspecified Qualified Code(s): M25.50 - Pain in unspecified joint
[2024-12-27 20:58] LABS: Thyroid Stimulating Hormone 0.315 uIu/ml (0.300-4.500)
[2024-12-28 04:05] VITALS: TEMP 97.5
[2024-12-28 06:27] LABS: Hematocrit (blood only) 40.3 % (42.0-52.0); Hemoglobin 13.1 g/dl (14.0-18.0); Mean Corpuscular Hemoglobin 29.6 pg (25.0-34.0); Mean Corpuscular Hgb Conc 32.5 g/dL (32.0-36.0); Mean Platelet Volume 9.4 fL (9.4-12.4); Platelet Count 428 K/uL (130-400); RDW Coefficient of Variation 11.6 % (11.5-14.5); RDW Standard Deviation 38.7 fL (36.4-46.3); Red Blood Count 4.43 M/uL (4.70-6.10); White Blood Count 8.43 K/ul (4.8-10.8)
[2024-12-28 06:45] LABS: BUN Creatinine Ratio 26.3 (10-20); Calcium 9.3 mg/dl (8.6-10.3); Creatinine Clr Calc Pharmacy 86.2 ml/min; Potassium 3.9 mmol/L (3.5-5.1)
--- NOTE | 2024-12-28 09:19 | Infectious Disease Consult ---
Date of Consultation December 28, 2024 Assessment & Plan (1) Polyarthralgia: (2) Polymyalgia rheumatica syndrome: Plan 74yo M with h/o Choe esophagus, GERD, umbilical hernia repair who presented on 12/26 with joint pains. Per chart, [place] 3 [place] every day [place] turkeys with his grandkids. Doxycycline was prescribed by PCP recently for 14d. In the ER, he was afebrile, vss. Initial labs with WBC wnl, Cr and LFTs wnl. Lactate neg. ESR 93, CRP 13.89. PCT 0.07. Lyme neg. Anaplasma/babesia pending. BCX ngtd. Seen by ortho who felt symptoms most likely from PMR. He has been getting doxycycline. ID consulted 12/28. Lyme screen is negative x 2, as such he does not have lyme and should not continue doxycycline. In polyarthralgia, would also consider acute rheumatic fever, but he doesnt fit the diagnostic criteria. Viral illness may also be considered such as Parvovirus, but hx is not consistent. Currently improving on steroids. # Polyarthralgia improving # Elevated ESR/CRP - Kajal stopped doxycycline - rest of care per primary team Will discontinue active follow up at this time. Please do not hesitate to reconsult the Infectious Diseases service as needed. Lorraine Vazquez MD [facility], Division of Infectious Diseases [facility]: [phone] Consultation Information Consultation was provided via telemedicine using two-way real-time interactive telecommunication between the patient and the telemedicine provider. For the duration of the visit, the provider was performing the assessment from a different facility than the patient. This includesuse of bluetooth stethoscope forauscultationperformed by the telepresenter that the telemedicine provider can hear if described in the physical exam. Pepper Cutter contact information: Please call [facility] Call Center [phone]. (Phone Number For Physician Use Only) After establishing a telemedicine visit, patient was: Patient was verified with two unique identifiers, Patient/authorized rep acknowledged consent and understanding and Gave permission to continue telehealth session Time Spent with Patient: Initial => 75 min History of Present Illness Reason for Consultation: migratory arthralgias Attending Physician: Garo Horowitz MD History of Present Illness 74yo M with h/o Choe esophagus, GERD, umbilical hernia repair who presented on 12/26 with joint pains. Per chart, [place] the [place] 3 [place] every day hunting turkeys with his grandkids. Afterwards on 11/24, he went to his PCP for a routine visit and reported some arthralgias. Lyme was negative. He saw his PCP again on 12/21 with low grade fevers, chills, and body aches for > 2 weeks. Over the last few weeks, he developed significant fatigue, multiple joint pain (significant), decreased appetite, and low grade fevers/chills. Per PCP note he asked his PCP to test him for Lyme and she did and it came back negative, but pt is convinced that he has Lyme and would like to try treatment. Doxycycline was prescribed at that time for 14d. He has been taking ibuprofen just to move around and also endorsed neck stiffness, shoulder pains with limited ROM of right shoulder. He did have limited ROM on left but this improved. He denied high-grade fever but noticed changes in temp on/off. In the ER, he was afebrile, vss. Initial labs with WBC wnl, Cr and LFTs wnl. Lactate neg. ESR 93, CRP 13.89. PCT 0.07. Lyme neg. Anaplasma/babesia pending. BCX ngtd. Seen by ortho who felt symptoms most likely from PMR. He has been getting doxycycline. ID consulted 12/28. On evaluation, patient reports that he had hip pains in the middle November along with some low grade temps. He also was napping a lot. He had poor sleep due to joint pains. Around , his hips felt better but then his knees and shoulders started hurting. No rashes. He currently feels better with steroids. He has not had any known tick bites. He noticed a tick on the back of his knee once but had not bitten. He did have a recent cold with cough and fever around day, but this lasted for 5 days. also was sick around that time. No sore throat. He is not around small children. Has had mosquito bites. No recent GI illnesses. Allergies Allergy/AdvReac Type Severity Reaction Status Date / Time No Known Allergies Allergy Verified 12/21/24 10:53 Home Medications Medication Instructions Recorded Confirmed Type multivitamin 1 tab PO QAM 03/10/19 12/26/24 History famotidine 20 mg tablet (Pepcid AC) 20 mg PO DAILY PRN Heartburn 07/14/20 12/26/24 History omeprazole 20 mg capsule,delayed 20 mg PO QAM #90 caps 11/03/24 12/26/24 Rx release doxycycline hyclate 100 mg tablet 100 mg PO BID 2 weeks #28 tabs 12/21/24 12/26/24 Rx Patient History Medical History Choe esophagus Umbilical hernia GERD (gastroesophageal reflux disease) Hx of colonic polyp Surgical History History of colonoscopy History of esophagogastroduodenoscopy (EGD) History of carpal tunnel surgery right H/O inguinal hernia repair right inguinal hernia repair with mesh Dr. Saturnino Sagastume's Family History Grandfather Coronary heart disease Myocardial infarction Father Prostate cancer Diabetes Mother Parkinsons disease Other No family history of adverse response to anesthesia Denies family history of Ovarian cancer Breast cancer Social History Smoking Status: Former smoker Tobacco Type: Cigarettes Age Started Using Tobacco: 18; Age Quit Using Tobacco: 33; packs per day: 0.4; Second Hand Exposure: No; Do You Dip or Chew Tobacco: No; Hx Alcohol Use: Yes Alcohol type: beer Alcohol Intake Frequency: 4 or More x per/Week Hx Substance Use: No Preferred Language: Swedish Communication Ability: Effective Visual Impairment: Limited Hearing Ability: Hard of Hearing Windows Laptop Technician Required: No Beliefs That Will Affect Care: None marital status: Current Living Situation: Spouse current occupational status: retired How many Children do You have: 2 Feels Safe at Home: Yes Childhood Exposure to Second-Hand Smoke: Yes (As a child- grandparents smoked. ) Diet: regular caffeine: Yes during the past year weight has: remained stable Dental Care, Regularly: Yes Physical Activity Frequency: 3-4 Times per Week Seatbelt Use: always Sunscreen Use: Yes Do you think of yourself as: straight/heterosexual Sexual Activity: has been sexually active, but not for at least 12 months Gender Identity: Male Assistive Devices: Denture - Upper and Glasses Review of System 10-point review of systems reviewed and are negative except for as above. Physical Exam Physical Exam: General: Awake, alert, no acute distress HEENT: NC/AT, EOMI, mmm Neck: supple, no LAD Lungs: respirations non-labored Heart: nl peripheral perfusion Abdomen: soft, NT/ND Back: no spinal tenderness Ext: no LE edema Skin: no rash Neuro: moving all extremities Results & Data Vital Signs (Past 12 Hours) Vital Signs Temp Pulse Pulse Resp BP Pulse Ox O2 Del Method 12/28/24 07:44 36.4 C L 55 L 16 131/74 95 Room Air 12/28/24 07:17 53 L 12/28/24 04:04 36.4 C L 57 L 153/71 H 98 Room Air 12/28/24 00:11 36.5 C 56 L 14 137/75 93 Room Air 12/27/24 21:45 63 Laboratory Results Labs reviewed. Diagnostic Findings Imaging reviewed.
[2024-12-28 11:38] VITALS: PULSE 63; RESP 18; O2SAT 97
--- NOTE | 2024-12-28 11:48 | Discharge Summary ---
Discharge Summary Date of Service December 28, 2024 Principal Dx & Hospital Course #1 = Principal Diagnosis (1) CRP elevated: Josh was seen in the hospital for concern of elevated CRP and joint pain. He had a negative lyme test and did not have serology consistent with anaplasmosis. He rapidly improved after starting prenisone. Day of d/c he felt well, was ambulating well wihtout discomfort, and was eager for discharge. ID consultation was deferred as pt felt clinically resolved and wished for ny. Extended tick born pane lwas pending at ny To Do As Outpt: 1. Complete steroid taper. 40mg x2 weeks, then slow taper. Repeat CBC/CRP in 1 week as outpatient 2. followup on final tick panel results 3. Followup with PCP and rheum Polyarthralgia, suspected PMR - CRP elevated - No leukocytosis. Lyme testing negative. No transaminitis. No thrombocytopenia - rapidly improved on prednisone. Taper as noted. - Recheck cbc/crp in 1 week by pcp GERD - Continue PPI while on prednisone (2) Polyarthralgia: (3) Arthralgia: (4) Barretts esophagus: Plan See above Admission HPI Per Admitting Provider Patient was seen in emergency room bed 10 he was brought in by his daughter Ms. Patiño who can be reached at phone #[phone] . According to her this is highly unusual of his father to miss his grandkids summer activities according to patient [place] the [place] 3 [place] every day hunting turkeys with his grand kids after that on November 26 he went to his primary care because he was having significant joint pains a Lyme test was done and it was negative patient has been taking ibuprofen just in order to move around he has been experiencing a stiff neck and shoulder pains currently his right shoulder has very limited range of motion 10 to 15 degrees in flexion unable to do extension 5 to 10 degrees of internal rotation unable to move his shoulder above the head. Mentions that he had similar disability in his left shoulder that improved he has started taking doxycycline since Saturday. Also noticed on the exam was painless but swollen left ankle patient denies any high- grade fever but he mentions that he has changes in his temperature off and on Discharge Exam General: A&Ox3. NAD. Cooperative. HEENT: Atraumatic, normocephalic. Pulm: CTAB A&P. -wheezes, -rales, -rhonchi. Symmetrical chest rise. No increased work of breathing. No respiratory distress. Cardiac: RRR, -mrg. Radial pulses intact and symmetrical. Ext: warm, dry. Moving cong xtremities equally Discharge Plan Discharge Items Patient Disposition: Home - Self-Care Reason For Visit: MIGRATORY ARTHRALGIAS , INABILITY TO MOVE Discharge Diagnosis: PMR Condition on Discharge: Fair Activity: Resume your previous activity Non-emergency contact: Primary Care Provider Call non-emergency contact if: you have any medication questions, your symptoms worsen, your pain is not controlled and your pain is worsening Follow-up/Referrals: Alexia Hall CRNP [Primary Care Provider] - Diet: Regular Addtl Attending Provider Instructions: You were seen in the hospital for joint pain. You were suspected to have PMR (polymyalgia rheumatica) on evaluation. You have been continued on steroids as noted below. Your lyme testing was negative. Extended tick born testing was pending at discharge, please followup on final results with your PCP. Your doxycycline was discontinued as it was most likely your symptoms were due to PMR rather than infection; however, if symptoms again worsen or tick borne testing final results are positive this should be resumed at that time. Please take prednisone 40mg by mouth daily for 2 weeks, then decrease by 5mg weekly, or as directed by your PCP/Acid Extractor in followup. You should have a weekly CRP/CBC drawn by your family doctor at your followup appointment. Your prednisone prescription has been prescribed for 2 weeks. You will need followup dosing/taper prescribed by your family doctor or line service technician at followup Please take omeprazole 40mg daily, and famotidine 20mg over the counter as needed daily while on prednisone. If you develop any new or worsening symptoms including fever, chills, sweats, chest pain, chest pressure, difficulty breathing, uncontrolled nausea/vomiting, rash, wheezing, passing out or nearly passing out, bleeding, black/bloody bowel movements, or other new or concerning symptoms please call your primary care physicia, or call 911 for re-evaluation in the emergency department if you are very concerned. Pending Studies at Discharge: Yes Stand-Alone Forms: My [employer], Smoking Cessation Medications and DC Order Prescriptions: New prednisone 20 mg Tablet 40 mg PO DAILY 14 Days Qty: 28 0RF Continued famotidine [Pepcid AC] 20 mg tablet 20 mg PO DAILY PRN (Reason: Heartburn) Rx Instructions: 12/26-otc unable to verify multivitamin tablet 1 tab PO QAM Rx Instructions: 12/26-otc unable to verify doxycycline hyclate 100 mg tablet 100 mg PO BID 14 Days Qty: 28 0RF Changed omeprazole 20 mg capsule,delayed release(DR/EC) 40 mg PO QAM Qty: 90 3RF Discharge Orders: Discharge Order (Routine); Ordered 12/28/24 Ordered By: Garo Horowitz Admission Data Admit Date/Time: 12/26/24 17:55 Attending Provider: Garo Horowitz Admit Provider: Ashlie Garsia Primary Care Provider: Alexia Hall Other Providers: Ashlie Garsia; Andreina Lopez; Inez Newman; Lorraine Vazquez; Aman Gaspar; Karen Hale; Arianna Puente; Gallo Serrano Hospital Stay Data Consultations 12/26/24 16:19 ED Decision to Admit Stat 12/26/24 17:34 Consult Infectious Diseases Routine 12/27/24 11:17 Consult Orthopedic Surgery Routine Discharge Instructions Given to Patient (Per Discharging Provider) You were seen in the hospital for joint pain. You were suspected to have PMR (polymyalgia rheumatica) on evaluation. You have been continued on steroids as noted below. Your lyme testing was negative. Extended tick born testing was pending at discharge, please followup on final results with your PCP. Your doxycycline was discontinued as it was most likely your symptoms were due to PMR rather than infection; however, if symptoms again worsen or tick borne testing final results are positive this should be resumed at that time. Please take prednisone 40mg by mouth daily for 2 weeks, then decrease by 5mg weekly, or as directed by your PCP/Acid Extractor in followup. You should have a weekly CRP/CBC drawn by your family doctor at your followup appointment. Your prednisone prescription has been prescribed for 2 weeks. You will need followup dosing/taper prescribed by your family doctor or line service technician at followup Please take omeprazole 40mg daily, and famotidine 20mg over the counter as needed daily while on prednisone. If you develop any new or worsening symptoms including fever, chills, sweats, chest pain, chest pressure, difficulty breathing, uncontrolled nausea/vomiting, rash, wheezing, passing out or nearly passing out, bleeding, black/bloody bowel movements, or other new or concerning symptoms please call your primary care physicia, or call 911 for re-evaluation in the emergency department if you are very concerned. Total Time Total Time Spent Total Time Spent (In Minutes): 40 Coding Level of Care Code 99457 INP/OBS DISCH >30 MIN Diagnoses CRP elevated R79.82 Polyarthralgia M25.50 Arthralgia, unspecified joint M25.50 Joint pain location: unspecified Choe's esophagus without dysplasia K22.70 Choe's esophagus type: without dysplasia
[2024-12-28 11:58] VITALS: BP 144/73
== END 2024-12-28 12:17 | disposition home or self-care (01) | DRG 547 ==
LOC: SUATTDRO → ED 11:35 → SUATTDRO 17:55 → 2N 17:55